=== PATIENT | male | born 1990 | race Caucasian/White ===

== ENCOUNTER 2019-05-23 02:39 | Inpatient (IN) | payer SELFPAY ==
[2019-05-23 02:40] VITALS: BP 173/87; PULSE 86; RESP 16; TEMP 36.6; O2SAT 97; BMI 22.5
--- NOTE | 2019-05-23 02:42 | ED_ITS ---
Entered by Priscila Mann, acting as scribe for JosrEvelia westfall HPI - Psych General: Chief Complaint: Psychiatric Symptoms Stated Complaint: SI Time Seen by Provider: 05/23/19 02:44 Source: patient and police Mode of arrival: ambulatory Limitations: other (in cuffs) History of Present Illness: HPI Narrative: 29 yo m came into the by law enforcement, patient is uncooperative for physician as to why he is here. He is cooperative and answering yes and no questions only.. See affidavits for reports. MD complaint: suicidal ideation and feels depressed Onset (ago): day(s) (today) Duration: constant Relieving factors: none Exacerbating factors: none Review of Systems General: Reports: other (negative unless marked) Const: Denies: fever, chills, body aches, fatigue, malaise or diaphoresis Eyes: Denies: change in vision or blurry vision ENMT: Denies: throat pain, painful swallowing, hoarseness, ear pain, ear discharge, Change in hearing or nasal discharge Card: Denies: chest pain, palpitations, irregular heart rhythm, syncope, pre- syncope, shortness of breath on exertion or shortness of breath when lying down Resp: Denies: shortness of breath, productive cough, non-productive cough, wheezing, coughing up blood or chest congestion GI: Denies: abdominal pain, nausea, vomiting, vomiting blood, coffee grounds in vomit, diarrhea, constipation, cramping, blood in stool or black tarry stool : Denies: flank pain, difficulty urinating, painful urination, urinary frequency, urinary urgency, decreased urine ouput, urinary incontinence or blood in urine Musc: Denies: neck pain, back pain, extremity pain, extremity swelling, joint pain, joint swelling, joint warmth or joint stiffness Skin/Breast: Denies: rash, skin tenderness or yellow skin Neuro: Denies: headache, numbness in extremities, weakness in extremities, changes in sensation, lack of coordination, difficulty walking, dizziness, vertigo or confusion Endo: Denies: excessive thirst, tired all the time, cold intolerance, excessive sweating, flushing or hot flashes Rakesh/Lymph: Denies: easy bruising, easy bleeding, petechiae or enlarged lymph nodes All/Imm: Denies: hives, throat swelling, tongue swelling, facial swelling or acute wheezing PFS ED PFSH: Statuses (acute, chronic, etc) shown below reflect problem list status as previously entered and may not be historically accurate Social History Smoking and tobacco status: current every day smoker Physical Exam Const: COMMON NORMALS: no apparent distress, oriented x3, no limitations, healthy appearing and well nourished EXAM LIMITATIONS: no altered mental status GENERAL APPEARANCE: cooperative, well kempt and well developed ORIENTATION/CONSCIOUSNESS: Yes awake HENMT: COMMON NORMALS: normocephalic, head/scalp atraumatic, hearing grossly normal bilaterally, external ears normal, EAC's normal, external nose normal and moist oral mucous membranes HEAD & SCALP: normal to inspection, normocephalic and atraumatic FACE & SINUS: normal facial exam and face symmetric NOSE: external nose normal and nares normal EXTERNAL EAR: Yes external ears normal EXTERNAL AUDITORY CANAL: EAC's normal MOUTH: oral and palatal mucosa normal and tongue normal Eye: COMMON NORMALS: PERRL, EOMs intact bilaterally, conjunctivae normal and no scleral icterus GENERAL EYE: normal appearance of both eyes and normal light reflex CONJUNCTIVA: Yes conjunctivae normal SCLERA: sclerae normal CORNEA: Yes corneas normal PUPIL: Yes PERRL DIRECT OPHTHALMOSCOPY: Yes normal light reflex Neck/C-Spine: COMMON NORMALS: full ROM, no lymphadenopathy, supple, no meningeal signs and no JVD GENERAL: Yes normal visual inspection and Yes trachea midline CERVICAL SPINE: Yes cervical ROM normal Chest: COMMONS NORMALS: inspection of chest normal and palpation of chest normal Resp: COMMON NORMALS: normal respiratory effort, no retractions, no use of accessory muscles and clear to auscultation bilaterally EFFORT & INSPECTION: Yes able to speak in complete sentences AUSCULTATION: clear to auscultation bilaterally Cardio: COMMON NORMALS: no JVD, regular rate, regular rhythm, S1 normal heart sound, S2 normal heart sound, no gallops, no clicks, no murmurs and no rub JUGULAR VENOUS DISTENTION: no JVD RATE: regular rate RHYTHM: regular rhythm HEART SOUNDS: S1 normal and S2 normal GI: COMMON NORMALS: soft to palpation, non-tender, no hepatosplenomegaly and no masses INSPECTION: Yes normal to inspection PALPATION: Yes soft and Yes no hepatosplenomegaly : COMMON NORMALS: Yes no CVA tenderness BLADDER/KIDNEY EXAM: Yes no CVA tenderness Back/Pelvis: COMMON NORMALS: no CVA tenderness, thoracic and lumbar spine normal to inspection, no thoracic nor lumbar tenderness and thoraco-lumbar ROM normal Extremity: COMMON NORMALS: normal to inspection, full ROM, normal capillary refill, no joint enlargement, no clubbing, cyanosis or edema and no calf tenderness Neuro: COMMON NORMALS: oriented x3, CN's II-XII intact bilaterally, moves all extremities, no focal motor deficits and no sensory deficits noted MENINGEAL SIGNS: Yes no meningeal signs Psych: COMMON NORMALS: mental status grossly normal, thought process normal, cooperative, affect normal, speech normal and activity/motor behavior normal APPEARANCE: Yes well kempt SPEECH: Yes normal speech THOUGHT PROCESS: normal thought process Skin: COMMON NORMALS: no rashes or lesions noted, skin turgor normal, no jaundice, no petechiae and no mottling GENERAL SKIN EXAM: no rashes or lesions noted and turgor normal MDM - Psych MDM Narrative: Medical decision making narrative: The case was reviewed with Dr. Mckeon, he agrees accept the patient to the [facility] on a 96-hour hold. Lab Data: Labs: Lab Results 05/23/19 05/23/19 05/23/19 Range/Units 03:00 03:00 03:01 WBC 11.7 H (4.0-10.0) 10^3/ uL RBC 4.77 (4.1-5.3) 10^6/u L Hgb 14.9 (11.7-16.6) g/dL Hct 43.5 (42.0-52.0) % MCV 91.2 (80-94) fL MCH 31.2 (28.0-34.0) pg MCHC 34.3 (30.0-36.0) g/dL RDW 12.4 (12.1-15.1) % Plt Count 225 (130-400) 10^3/c mm MPV 10.8 H (7.4-10.4) fL Neut % (Auto) 49.6 % Lymph % (Auto) 41.3 % Cottle % (Auto) 7.9 % Eos % (Auto) 0.3 % Baso % (Auto) 0.7 % Neut # (Auto) 5.8 (1.8-7.7) 10^3/u L Lymph # (Auto) 4.8 (0.8-4.8) 10^3/u L Cottle # (Auto) 0.9 (0.2-0.9) 10^3/u L Eos # (Auto) 0.0 (0.0-0.8) 10^3/u L Baso # (Auto) 0.1 (0.0-0.1) 10^3/u L Nucleated RBC % (a uto) 0 % Nucleated RBCs # 0.0 /100WBC Sodium (136-145) mmol/L Potassium (3.5-5.1) mmol/L Chloride (98-107) mmol/L Carbon Dioxide (22-29) mmol/L Anion Gap (5-19) BUN (6-20) mg/dL Creatinine (0.7-1.2) mg/dL GFR Calculation (90-130) mL/min Glucose (74-109) mg/dL Calcium (8.6-10.0) mg/Dl Total Bilirubin (0.15-1.2) mg/dL AST (0-40) U/L ALT (0-41) U/L Alkaline Phosphata se (40-130) IU/L Total Protein (6.6-8.7) g/dL Albumin (3.5-5.2) g/dL Globulin (1.3-4.6) g/dL TSH (0.27-4.20) uIU/ mL Urine Color Straw (Yellow) Urine Appearance Clear (CLEAR) Urine pH 5 (5-7) Ur Specific Gravit y 1.010 (1.005-1.030) Urine Protein Neg (Negative) Urine Glucose (UA) Norm (Normal) Urine Ketones Negative (Negative) Urine Occult Blood Neg (Negative) Urine Nitrate Negative (Negative) Urine Bilirubin Neg (NEGATIVE) Urine Urobilinogen Norm (Negative) mg/dL Ur Leukocyte Imelda ase Negative (Negative) Salicylates (3-10) mg/dL Urine Opiates Scre en Negative (Negative) ng/mL Acetaminophen (10-30) ug/mL Ur Barbiturates Sc reen Negative (Negative) ng/mL Ur Phencyclidine S crn Negative (Negative) ng/mL Ur Amphetamines Sc reen Negative (Negative) ng/mL U Benzodiazepines Scrn Negative (Negative) ng/mL Urine Cocaine Scre en Negative (Negative) ng/mL U Marijuana (THC) Screen Negative (Negative) ng/mL Ethyl Alcohol (0-10) mg/dL 05/23/19 Range/Units 03:01 WBC (4.0-10.0) 10^3/ uL RBC (4.1-5.3) 10^6/u L Hgb (11.7-16.6) g/dL Hct (42.0-52.0) % MCV (80-94) fL MCH (28.0-34.0) pg MCHC (30.0-36.0) g/dL RDW (12.1-15.1) % Plt Count (130-400) 10^3/c mm MPV (7.4-10.4) fL Neut % (Auto) % Lymph % (Auto) % Cottle % (Auto) % Eos % (Auto) % Baso % (Auto) % Neut # (Auto) (1.8-7.7) 10^3/u L Lymph # (Auto) (0.8-4.8) 10^3/u L Cottle # (Auto) (0.2-0.9) 10^3/u L Eos # (Auto) (0.0-0.8) 10^3/u L Baso # (Auto) (0.0-0.1) 10^3/u L Nucleated RBC % (a uto) % Nucleated RBCs # /100WBC Sodium 141 (136-145) mmol/L Potassium 4.0 (3.5-5.1) mmol/L Chloride 104 (98-107) mmol/L Carbon Dioxide 22 (22-29) mmol/L Anion Gap 19.0 (5-19) BUN 16 (6-20) mg/dL Creatinine 1.0 (0.7-1.2) mg/dL GFR Calculation 89.6 L (90-130) mL/min Glucose 100 (74-109) mg/dL Calcium 10.6 H (8.6-10.0) mg/Dl Total Bilirubin 0.2 (0.15-1.2) mg/dL AST 71 H (0-40) U/L ALT 52 H (0-41) U/L Alkaline Phosphata se 79 (40-130) IU/L Total Protein 8.3 (6.6-8.7) g/dL Albumin 4.5 (3.5-5.2) g/dL Globulin 3.8 (1.3-4.6) g/dL TSH 2.77 (0.27-4.20) uIU/ mL Urine Color (Yellow) Urine Appearance (CLEAR) Urine pH (5-7) Ur Specific Gravit y (1.005-1.030) Urine Protein (Negative) Urine Glucose (UA) (Normal) Urine Ketones (Negative) Urine Occult Blood (Negative) Urine Nitrate (Negative) Urine Bilirubin (NEGATIVE) Urine Urobilinogen (Negative) mg/dL Ur Leukocyte Imelda ase (Negative) Salicylates < 0.3 L (3-10) mg/dL Urine Opiates Scre en (Negative) ng/mL Acetaminophen < 5.0 L (10-30) ug/mL Ur Barbiturates Sc reen (Negative) ng/mL Ur Phencyclidine S crn (Negative) ng/mL Ur Amphetamines Sc reen (Negative) ng/mL U Benzodiazepines Scrn (Negative) ng/mL Urine Cocaine Scre en (Negative) ng/mL U Marijuana (THC) Screen (Negative) ng/mL Ethyl Alcohol 205 H (0-10) mg/dL EKG Data^: EKG 1: Attestation: I personally reviewed and interpreted this EKG as follows: EKG interpretation date: 05/23/19 EKG interpretation time: 02:55 Prior EKG tracings: not available for review Interpretation: Normal sinus rhythm at 96 beats a minute, normal axis, normal IN and QTc intervals, nonspecific ST and T wave changes. Discharge Plan Discharge Prescriptions: No Action No Known Home Medications RF: 0 Coding Level of Care Code ED Operations Support Coordinator for Chg Fwd Exam Problem Focused The documentation recorded by the Johnathan rodriguez Stephanie Lyn, accurately reflects the service I personally performed and the decisions made by Josr flores Eli N
--- NOTE | 2019-05-23 02:44 | ECG_ITS ---
Measurements Intervals Ragan Rate: 96 P: 81 KS: 156 QRS: 92 QRSD: 106 T: 17 QT: 338 QTc: 427 SINUS RHYTHM WITH SINUS ARRHYTHMIA POSSIBLE LEFT ATRIAL ENLARGEMENT [-0.1mV P WAVE IN V1/V2] BORDERLINE RIGHT AXIS DEVIATION [QRS AXIS > 90] NONSPECIFIC T-WAVE ABNORMALITY Compared to ECG 04/12/2017 05:22:38 T-wave abnormality now present Early repolarization no longer present Electronically Signed On 05-23-2019 9:33:30 SALMON TROLL FISHER by Tristen Ag M.D. [email or web address]
[2019-05-23] MEDS: haloperidol inj 5 mg/mL INJ 1 mL IM (03:00)
[2019-05-23 03:12] LABS: Basophils # 0.1 10^3/uL (0.0-0.1); Basophils % 0.7 %; Eosinophils % 0.3 %; Hematocrit 43.5 % (42.0-52.0); Hemoglobin 14.9 g/dL (11.7-16.6); Lymphocytes # 4.8 10^3/uL (0.8-4.8); Lymphocytes % 41.3 %; Mean Corpuscular HGB Conc 34.3 g/dL (30.0-36.0); Mean Corpuscular Hemoglobin 31.2 pg (28.0-34.0); Mean Corpuscular Volume 91.2 fL (80-94); Mean Platelet Volume 10.8 fL (7.4-10.4); Monocytes # 0.9 10^3/uL (0.2-0.9); Monocytes % 7.9 %; Neutrophils # 5.8 10^3/uL (1.8-7.7); Neutrophils % 49.6 %; Nucleated Red Blood Cells % 0 %; Platelet Count 225 10^3/cmm (130-400); Red Blood Count 4.77 10^6/uL (4.1-5.3); Red Cell Distribution Width 12.4 % (12.1-15.1); White Blood Count 11.7 10^3/uL (4.0-10.0)
[2019-05-23 03:21] LABS: Add Urine Microscopic? NO
[2019-05-23 03:25] LABS: Bilirubin Urine Neg (NEGATIVE); Blood Urine Neg (Negative); Glucose Urine UA Norm (Normal); Ketones Urine Negative (Negative); Leukocyte Esterase Urine Negative (Negative); Nitrate Urine Negative (Negative); Protein Urine Neg (Negative); Urine Appearance Clear (CLEAR); Urine Color Straw (Yellow); Urobilinogen Urine Norm (Negative); pH Urine 5 (5-7)
[2019-05-23 03:34] LABS: Slide Review Slide Review Perform
[2019-05-23 03:38] LABS: Alanine Aminotransferase 52 U/L (0-41); Albumin Level 4.5 g/dL (3.5-5.2); Alcohol Level 205 mg/dL (0-10); Alkaline Phosphatase 79 IU/L (40-130); Aspartate Amino Transferase 71 U/L (0-40); Blood Urea Nitrogen 16 mg/dL (6-20); Calcium 10.6 mg/Dl (8.6-10.0); Carbon Dioxide 22 mmol/L (22-29); Chloride 104 mmol/L (98-107); Globulin 3.8 g/dL (1.3-4.6); Glomerular Filtration Rate 89.6 mL/min (90-130); Glucose 100 mg/dL (74-109); Sodium 141 mmol/L (136-145); Thyroid Stimulating Hormone 2.77 uIU/mL (0.27-4.20); Total Bilirubin 0.2 mg/dL (0.15-1.2); Total Protein 8.3 g/dL (6.6-8.7)
[2019-05-23 03:41] LABS: Acetaminophen < 5.0 ug/mL (10-30); Salicylate < 0.3 mg/dL (3-10)
[2019-05-23 03:53] LABS: Amphetamines Screen Urine Negative (Negative); Barbiturates Screen Urine Negative (Negative); Benzodiazepines Screen Urine Negative (Negative); Cocaine Screen Urine Negative (Negative); Opiate Screen Urine Negative (Negative); PCP Screen Urine Negative (Negative); THC Screen Urine Negative (Negative)
[2019-05-23 04:04] LABS: Phenytoin Dilantin 0.8 ug/mL (10-20); Valproic Acid Level 2.8 mcg/mL (50-100)
[2019-05-23 05:20] VITALS: BP 101/49; PULSE 58; RESP 16; TEMP 36.3; O2SAT 98
[2019-05-23 06:00] VITALS: BP 116/88; PULSE 69; RESP 17; TEMP 36.6
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
[2019-05-23] MEDS: multivitamin therapeutic Tablet 1 TAB PO (08:50)
[2019-05-23] MEDS: folic acid 1 mg Tablet PO (08:50)
[2019-05-23] MEDS: thiamine 100 mg Tablet PO (08:50)
[2019-05-23 14:00] VITALS: BP 110/55; PULSE 75; RESP 18; TEMP 37.3; O2SAT 96
[2019-05-23] MEDS: acetaminophen 325 mg Tablet 650 MG PO (15:30)
[2019-05-23 19:55] VITALS: BP 110/58; PULSE 66; RESP 18; TEMP 36.8; O2SAT 98
[2019-05-24 06:00] VITALS: BP 112/60; PULSE 68; RESP 18; TEMP 36.8; O2SAT 98
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
[2019-05-24] MEDS: folic acid 1 mg Tablet PO (10:04)
[2019-05-24] MEDS: thiamine 100 mg Tablet PO (10:04)
[2019-05-24] MEDS: multivitamin therapeutic Tablet 1 TAB PO (10:04)
== END 2019-05-24 10:21 | disposition home or self-care (01) | DRG 897 ==
LOC: ER 04:00 → NP 05:12
PROVIDERS: Admitting Provider Psychiatry & Neurology Psychiatry; Emergency Provider Emergency Medicine; Visit Provider Psychiatry & Neurology Psychiatry
DX: F10.121 Alcohol abuse with intoxication delirium (principal); M54.9 Dorsalgia, unspecified; G89.29 Other chronic pain; Z87.820 Personal history of traumatic brain injury; J45.909 Unspecified asthma, uncomplicated; Y90.7 Blood alcohol level of 200-239 mg/100 ml
CPT/HCPCS: 12345; 80053; 80156; 80164; 80185; 80307; 81003; 84443; 85025; 93005; 96372; 99284; A9270; J1630

== ENCOUNTER 2020-06-29 14:52 | Emergency (ER) | payer OTHER, SELFPAY ==
[2020-06-29 15:01] VITALS: BP 116/76; PULSE 101; RESP 16; TEMP 36.2; O2SAT 98; BMI 23.1
--- NOTE | 2020-06-29 15:06 | ED_ITS ---
HPI - Extremity Problem General: Chief complaint: Extremity Injury, Lower Stated complaint: SMASHED TOE AT WORK Time Seen by Provider: 06/29/20 15:05 Source: patient Mode of arrival: ambulatory Limitations: no limitations History of Present Illness: HPI Narrative: 30-year-old male patient comes in today with injury to the great toe on the left foot. Patient reports yesterday while at work he had dropped a tie on his great toe. Patient has had discomfort and redness to the toe. Patient appears well. Patient appears no acute distress. Patient has a history of alcoholism. Review of Systems General: Reports: 10 or more systems reviewed and unremarkable except in HPI and below Musc: Reports: other (Great toe injury left foot) [facility] ED PFSH: Social History (Updated 06/29/20 @ 15:04 by Alejandro Granados RN) Smoking and tobacco status: light tobacco smoker cigarettes Packs smoked per day: 0.5 Years cigarettes smoked: 15 Quit status (tobacco): has tried quititng Number of times tried to quit tobacco: 5 Second hand smoke exposure: No Alcohol intake: never Substance/Drug Use: never Current gender identity: Male Physical Exam Const: COMMON NORMALS: no acute distress and patient oriented x3 GENERAL APPEARANCE: cooperative HENMT: COMMON NORMALS: normocephalic and Normal external nose present HEAD & SCALP: normal to inspection and normocephalic NOSE: Normal external nose present MOUTH: Normal oral and palatal mucosa present Eye: GENERAL EYE: appearance normal, both eyes and all related structures Neck/C-Spine: COMMON NORMALS: full ROM Chest: COMMONS NORMALS: normal inspection of the chest Resp: COMMON NORMALS: normal respiratory effort EFFORT & INSPECTION: Yes able to speak in complete sentences Cardio: COMMON NORMALS: regular rate and regular rhythm RATE: regular rate RHYTHM: regular rhythm GI: COMMON NORMALS: non-tender Back/Pelvis: COMMON NORMALS: thoracic and lumbar spine normal to inspection Extremity: NARRATIVE EXTREMITY EXAM: Ecchymosis to the subungual area of the great toe on the left foot. Redness and mild swelling is also noted to the great toe. Pulses are intact. No obvious deformity otherwise. Neuro: COMMON NORMALS: patient oriented x3 and moves all extremities Psych: COMMON NORMALS: mental status grossly normal and cooperative Skin: COMMON NORMALS: no rashes or lesions noted GENERAL SKIN EXAM: no rashes or lesions noted Course Vital Signs: Vital signs: Vital Signs Temperature 97.2 F L 06/29/20 15:01 Pulse Rate 86 06/29/20 15:10 Respiratory Rate 16 06/29/20 15:01 Blood Pressure 117/69 06/29/20 15:10 Pulse Oximetry 95 06/29/20 15:10 MDM - Extremity (Nontraumatic) MDM Narrative: Medical decision making narrative: 30-year-old male patient comes in for evaluation of injury to the great toe of the left foot starting yesterday. On exam patient has subungual hematoma with some swelling to the toe. Differential diagnosis includes contusion, fracture, sprain. X-ray noted no acute fracture. Reviewed exam with patient recommended treatment with acetaminophen and ibuprofen for pain. Due to the significant redness to the area we will cover for secondary infection due to blunt injury. Patient be started on cephalexin 503 times a day for next 7 days. Patient reported understanding of care plan and need for follow-up or return to the ER. Discharge Plan Discharge Patient Disposition: Home Clinical Impression: Hematoma, subungual, great toe, left Qualifiers: Encounter type: initial encounter Qualified Code(s): S90.212A - Contusion of left great toe with damage to nail, initial encounter Condition: Stable Prescriptions: New cephalexin 500 mg capsule 500 mg PO TID 7 Days Qty: 21 RF: 0 No Action venlafaxine [Effexor XR] 150 mg capsule,extended release 24hr 150 mg PO DAILY Qty: 30 RF: 2 trazodone 50 mg tablet 100 mg PO .HS Qty: 60 RF: 2 hydroxyzine HCl 50 mg tablet 50 mg PO QID PRN (Reason: anxiety) Qty: 120 RF: 2 folic acid 1 mg Tablet 1 mg PO DAILY Qty: 30 RF: 0 Vitamin B-1 (mononitrate) 100 mg Tablet 100 mg PO DAILY Qty: 30 RF: 0 Discharge Orders: Discharge ED (Routine); Ordered 06/29/20 Ordered By: Rell Castano Discharge Diet: Usual diet Discharge Activity: Increase activity as tolerated Patient Instructions: Foot Contusion (ED), Opioid Safety Activity Restrictions/Additional Instructions: Use acetaminophen and ibuprofen for pain. Activity as tolerated. Wear good supportive and protective shoe. Elevate foot as much as possible. Usually after 2 to 3 days the pain improved significantly. Follow-up with primary care as needed. Take antibiotic due to concern for secondary infection. Coding Level of Care Code ED Crane Service Technician for Chg Fwd Exam Comprehensive
--- NOTE | 2020-06-29 15:08 | XR_ITS ---
WS: [id number] Exam: XR foot LT min 3V* [id number] Date/Time of Exam: 06/29/2020 3:10 PM Reason For Exam: injury great toe, crush Findings: The foot was examined in multiple views and reveals no fractures or displacements of bone. No bony a nomalies are noted. The bony elements are in adequate alignment. The joint spaces are smooth and eq uidistant. XR/XR foot LT min 3V* [id number] IMPRESSION: Negative left foot.
[2020-06-29 15:10] VITALS: BP 117/69; PULSE 86; O2SAT 95
[2020-06-29 15:47] VITALS: BP 123/84; PULSE 88; O2SAT 98
== END 2020-06-29 15:48 | disposition home or self-care (01) ==
PROVIDERS: Emergency Provider Nurse Practitioner Family
DX: S90.212A Contusion of left great toe with damage to nail, initial encounter (principal); F17.210 Nicotine dependence, cigarettes, uncomplicated; W20.8XXA Other cause of strike by thrown, projected or falling object, initial encounter
CPT/HCPCS: 73630; 99282

== ENCOUNTER → 2021-09-03 06:00 | Outpatient (BNVA) | payer SELFPAY | PROVIDERS: Visit Provider Family Medicine | DX: J02.9 Acute pharyngitis, unspecified (principal) | CPT/HCPCS: 87880 ==

== ENCOUNTER 2022-12-12 07:14 | Emergency (ER) | payer SELFPAY ==
[2022-12-12 07:24] VITALS: BP 134/53; PULSE 83; RESP 15; TEMP 37.6; O2SAT 99
--- NOTE | 2022-12-12 07:47 | XR_ITS ---
WS: [id number] XR chest 2V* [id number] REASON FOR EXAM: fever FINDINGS: The chest is unchanged compared to 07/30/2008. The heart and mediastinum are within normal limits. No active pulmonary parenchymal or pleural disease is noted. The bony thorax is intact without significant focal abnormality. IMPRESSION: No acute chest abnormality.
--- NOTE | 2022-12-12 07:50 | XR_ITS ---
WS: [id number] XR sinus <3V [id number] REASON FOR EXAM: facial pain FINDINGS: Paranasal sinuses are well aerated. No significant mucosal thickening or sinus mass. Bony margins of the paranasal sinuses are unremarkable. Remaining facial bone structures demonstrate no abnormality. IMPRESSION: No significant abnormality.
--- NOTE | 2022-12-12 07:59 | W.ED.HA ---
Documented by User: SURAJ Hernadez 12/12/22 11:24 HPI - Headache General: Chief Complaint: Headache Stated Complaint: 3 days migraine Time Seen by Provider: 12/12/22 07:17 History of Present Illness: Patient presents today with 3 days of headache and not feeling well. He reports that approximately 3 days ago he started just feeling generally ill and noticing that he was having intermittent fevers up to 102 degrees. He reports that he has had an intermittent headache for 3 days. He reports that hurts mostly on his temples, forehead and around his left eye. He denies any visual disturbance, but states that it hurts when he looks to the side on the left. He reports that for the past 2 days he has been having neck stiffness that seems to be worsening. He reports it hurts a lot when he turns his head or bends his neck down. He does report he has poor dentition but has not noted any tooth pain specifically. He took 1 dose of an antibiotic that his give him but he does not know the name of it. He has had some nasal congestion and drainage and he does smoke. He reports that he told the triage nurse that he had had some shortness of breath, but it is not really shortness of breath. He states that the headache gets so bad it seems to take his breath away. Associated symptoms: Reports fever(s); Deny chest pain, nausea or vomiting Review of Systems Const: Reports: fever(s), chills, body aches and fatigue Eyes: Reports: eye discomfort; Denies: change in vision ENMT: Reports: nasal congestion; Denies: throat pain, mouth pain, dental pain or ear or mastoid pain Card: Denies: chest pain or palpitations Resp: Reports: non-productive cough (States that he is a smoker, this is baseline); Denies: dyspnea or productive cough GI: Denies: abdominal pain, nausea or vomiting : Denies: flank pain, difficulty urinating or dysuria Musc: Reports: neck pain Neuro: Reports: headache(s) and dizziness; Denies: numbness in extremities, weakness in extremities or difficulty walking [facility] PFSH: Social History Smoking and tobacco status: light tobacco smoker cigarettes Packs smoked per day: 0.5 Years cigarettes smoked: 15 Quit status (tobacco): has tried quititng Number of times tried to quit tobacco: 5 Second hand smoke exposure: No Alcohol intake: never Substance/Drug Use: never Current gender identity: Male Physical Exam Const: COMMON NORMALS: no acute distress, patient oriented x3 and alert HENMT: COMMON NORMALS: normocephalic, atraumatic and external ears normal HEAD & SCALP: normocephalic and atraumatic EXTERNAL EAR: Yes external ears normal TYMPANIC MEMBRANE: TM abnormal TM laterality: left Details: bulging (Clear fluid effusion) TEETH & GINGIVA: Yes poor dentition THROAT: posterior oropharynx normal and uvula midline Eye: COMMON NORMALS: Equal, round and reactive pupils present, EOMs intact bilaterally and conjunctivae normal CONJUNCTIVA: Yes conjunctivae normal PUPIL: Yes Equal, round and reactive pupils present OTHER: Patient reports pain with lateral eye gaze specifically worse on the left lateral Neck/C-Spine: COMMON NORMALS: no JVD GENERAL: Yes normal visual inspection, Yes trachea midline, Yes tender and Yes Meningeal signs present Meningeal signs findings: Yes nuccal rigidity, No Brudzinski's sign present and No Kernig's sign presnet OTHER: Patient reports neck stiffness with Kernig sign however there is no reflexive hip flexion. Kernig sign is negative Resp: COMMON NORMALS: normal respiratory effort, No use of accessory muscles and clear to auscultation bilaterally AUSCULTATION: clear to auscultation bilaterally Cardio: COMMON NORMALS: no JVD, regular rate, regular rhythm, S1 normal heart sound present and S2 normal heart sound present RATE: regular rate RHYTHM: regular rhythm HEART SOUNDS: S1 normal heart sound present and S2 normal heart sound present Neuro: COMMON NORMALS: patient oriented x3, CN's II-XII intact bilaterally, moves all extremities and no focal motor deficits SENSORIUM/ORIENTATION: Yes alert MENINGEAL SIGNS: Yes nuccal rigidity, No Brudzinski's sign present and No Kernig's sign presnet Skin: NARRATIVE SKIN EXAM: Tick bite posterior left arm at the axilla. Small scabbed lesion Quarter centimeter surrounding erythema slightly edematous. No oozing. Course Vital Signs: Vital signs: Vital Signs Temperature 99.7 F H 12/12/22 07:24 Pulse Rate 83 12/12/22 07:24 Respiratory Rate 15 12/12/22 07:24 Blood Pressure 134/53 12/12/22 07:24 Pulse Oximetry 99 12/12/22 07:24 Oxygen Delivery Me thod Room Air 12/12/22 07:24 MDM - Headache Medical Decision Making Patient presents today for illness x 3 days including headache, neck pain, fever up to 102 degrees. Patient reports that he does not typically get headaches. He reported pain with the lateral gaze more on the left eye to the left lateral. EOMs are intact all sorenson. He denies visual disturbance. X-ray chest and x-ray sinuses are negative for any acute abnormalities. IV fluid administered along wit Toradol, Benadryl, Reglan. On reevaluation after medications administered patient reports little to no change in headache. He does offer at that time that he forgot to tell me that he has a tick bite on the back of his left arm. He thinks he was bitten 2 weeks ago. He states it is a little bit red around there and somewhat painful. Discussed the case with Dr. Penn who agrees with workup thus far and going ahead and starting treatment for potential tickborne illness with doxycycline. He also agrees with plan to do a noncontrast CT head given patient's neck stiffness and lateral eye gaze pain reported. CT head does not show any acute changes Patient reports improvement of headache after medications administered today, but states that he is tired I discussed the case, test results, physical exam findings with Dr. Penn. He agrees that meningitis is a less likely diagnosis at this time given his normal white blood cell count, normal imaging, negative Kernig's and Brudzinski's signs. He agrees with treating to cover for tickborne illness with doxycycline but given the patient's strict return precautions. Patient is requesting to go home. He verbalized understanding of all discharge instructions. He states that he will return to the ER should he have new or worsening symptoms, or should his symptoms not be improving drastically over the next 48 hours. Lab Data 12/12/22 08:00 12/12/22 08:00 Laboratory Results WBC 9.7 10^3/uL (4.0-10.0) 12/12/22 08:00 RBC 4.70 10^6/uL (4.1-5.3) 12/12/22 08:00 Hgb 14.7 g/dL (11.7-16.6) 12/12/22 08:00 Hct 42.8 % (42.0-52.0) 12/12/22 08:00 MCV 91.1 fl (80-94) 12/12/22 08:00 MCH 31.3 pg (28.0-34.0) 12/12/22 08:00 MCHC 34.3 g/dL (30.0-36.0) 12/12/22 08:00 RDW 12.5 % (12.1-15.1) 12/12/22 08:00 Plt Count 150 10^3/cmm (130-400) 12/12/22 08:00 MPV 10.4 fL (7.4-10.4) 12/12/22 08:00 Neut % (Auto) 76.6 % 12/12/22 08:00 Lymph % (Auto) 11.7 % 12/12/22 08:00 [place] % (Auto) 10.8 % 12/12/22 08:00 Eos % (Auto) 0.0 % 12/12/22 08:00 Baso % (Auto) 0.5 % 12/12/22 08:00 Neut # (Auto) 7.42 10^3/uL (1.8-7.7) 12/12/22 08:00 Lymph # (Auto) 1.1 10^3/uL (0.8-4.8) 12/12/22 08:00 [place] # (Auto) 1.1 10^3/uL (0.2-0.9) H 12/12/22 08:00 Eos # (Auto) 0.0 10^3/uL (0.0-0.8) 12/12/22 08:00 Baso # (Auto) 0.1 10^3/uL (0.0-0.1) 12/12/22 08:00 Nucleated RBC % (auto) 0 % 12/12/22 08:00 Nucleated RBCs # 0.0 /100WBC 12/12/22 08:00 Sodium 133 mmol/L (136-145) L 12/12/22 08:00 Potassium 4.1 mmol/L (3.5-5.1) 12/12/22 08:00 Chloride 97 mmol/L (98-107) L 12/12/22 08:00 Carbon Dioxide 25 mmol/L (22-29) 12/12/22 08:00 Anion Gap 15.1 (5-19) 12/12/22 08:00 BUN 11 mg/dL (6-20) 12/12/22 08:00 Creatinine 1.0 mg/dL (0.7-1.2) 12/12/22 08:00 GFR Calculation 87.7 mL/min (90-130) L 12/12/22 08:00 Glucose 160 mg/dL (65-115) H 12/12/22 08:00 Calculated Osmolality 279 mOsm/kg (285-295) L 12/12/22 08:00 Calcium 9.0 mg/dL (8.5-10.5) 12/12/22 08:00 Total Bilirubin 0.3 mg/dL (0.15-1.2) 12/12/22 08:00 AST 17 U/L (0-40) 12/12/22 08:00 ALT 12 U/L (0-41) 12/12/22 08:00 Alkaline Phosphatase 64 U/L (40-130) 12/12/22 08:00 Total Protein 7.6 g/dL (6.6-8.7) 12/12/22 08:00 Albumin 4.2 g/dL (3.5-5.2) 12/12/22 08:00 Globulin 3.4 g/dL (1.3-4.6) 12/12/22 08:00 Urine Color Yellow (Yellow) 12/12/22 08:00 Urine Appearance Clear (CLEAR) 12/12/22 08:00 Urine pH 6 (5-7) 12/12/22 08:00 Ur Specific [place] 1.020 (1.005-1.030) 12/12/22 08:00 Urine Protein 1+ (Negative) H 12/12/22 08:00 Urine Glucose (UA) Trace (Normal) H 12/12/22 08:00 Urine Ketones Negative (Negative) 12/12/22 08:00 Urine Blood Neg (Negative) 12/12/22 08:00 Urine Nitrate Negative (Negative) 12/12/22 08:00 Urine Bilirubin Neg (Negative) 12/12/22 08:00 Urine Urobilinogen 1 mg/dL (Negative) H 12/12/22 08:00 Ur Leukocyte Esterase Negative (Negative) 12/12/22 08:00 Urine RBC 0-4 /hpf (0-2) H 12/12/22 08:00 Urine WBC 0-4 /hpf (0-5) H 12/12/22 08:00 Ur Squamous Epith Cells 0-4 /hpf (0-5) H 12/12/22 08:00 Amorphous Sediment Not Reportable 12/12/22 08:00 Urine Bacteria None /hpf (NONE) 12/12/22 08:00 Hyaline Casts 0-4 /lpf H 12/12/22 08:00 Urine Mucus 2+ /hpf 12/12/22 08:00 Discharge Plan Discharge Patient Disposition: Home Clinical Impression: Headache, Fever, Neck pain, Tick bite Condition: Stable Prescriptions: New doxycycline hyclate 100 mg capsule 100 mg PO BID 14 Days Qty: 28 0RF Discharge Orders: Discharge ED (Routine); Ordered 12/12/22 Ordered By: Karla Jalloh Discharge Diet: Usual diet Discharge Activity: Increase activity as tolerated Patient Instructions: Tick Bites Activity Restrictions/Additional Instructions: Take antibiotic as directed. You had your first dose this morning you may take your second dose this evening. Stay upright for at least 30 minutes after taking the medication to prevent GI upset. Use caution with sun exposure as you can burn more easily. Make sure that you are staying well-hydrated. You may alternate Tylenol and Motrin to help with head pain. You should be feeling significantly improved in the next 48 hours and if you are not you need to return for further evaluation. Return to the ER should you have any new or worsening symptoms including, but not limited to, worsening head pain, uncontrolled fever, visual disturbance, worsening eye pain., Coding Level of Care Code ED Sealing Machine Operator for Chg Fwd Documented by User: Giles Penn MD 12/17/22 17:23 HPI - Headache General: Chief Complaint: Headache Stated Complaint: 3 days migraine Time Seen by Provider: 12/12/22 07:17 [facility] PFSH: Social History Smoking and tobacco status: light tobacco smoker cigarettes Packs smoked per day: 0.5 Years cigarettes smoked: 15 Quit status (tobacco): has tried quititng Number of times tried to quit tobacco: 5 Second hand smoke exposure: No Alcohol intake: never Substance/Drug Use: never Current gender identity: Male Course Vital Signs: Vital signs: Vital Signs Temperature 99.7 F H 12/12/22 07:24 Pulse Rate 83 12/12/22 07:24 Respiratory Rate 15 12/12/22 07:24 Blood Pressure 134/53 12/12/22 07:24 Pulse Oximetry 99 12/12/22 07:24 Oxygen Delivery Me thod Room Air 12/12/22 07:24 MDM - Headache Medical Decision Making Patient presents today for illness x 3 days including headache, neck pain, fever up to 102 degrees. Patient reports that he does not typically get headaches. He reported pain with the lateral gaze more on the left eye to the left lateral. EOMs are intact all sorenson. He denies visual disturbance. X-ray chest and x-ray sinuses are negative for any acute abnormalities. IV fluid administered along wit Toradol, Benadryl, Reglan. On reevaluation after medications administered patient reports little to no change in headache. He does offer at that time that he forgot to tell me that he has a tick bite on the back of his left arm. He thinks he was bitten 2 weeks ago. He states it is a little bit red around there and somewhat painful. Discussed the case with Dr. Penn who agrees with workup thus far and going ahead and starting treatment for potential tickborne illness with doxycycline. He also agrees with plan to do a noncontrast CT head given patient's neck stiffness and lateral eye gaze pain reported. CT head does not show any acute changes Patient reports improvement of headache after medications administered today, but states that he is tired I discussed the case, test results, physical exam findings with Dr. Penn. He agrees that meningitis is a less likely diagnosis at this time given his normal white blood cell count, normal imaging, negative Kernig's and Brudzinski's signs. He agrees with treating to cover for tickborne illness with doxycycline but given the patient's strict return precautions. Patient is requesting to go home. He verbalized understanding of all discharge instructions. He states that he will return to the ER should he have new or worsening symptoms, or should his symptoms not be improving drastically over the next 48 hours. I discussed this case with MED Hernadez. I reviewed documentation, labs, imaging. Giles Penn MD Emergency Medicine Lab Data 12/12/22 08:00 12/12/22 08:00 Laboratory Results WBC 9.7 10^3/uL (4.0-10.0) 12/12/22 08:00 RBC 4.70 10^6/uL (4.1-5.3) 12/12/22 08:00 Hgb 14.7 g/dL (11.7-16.6) 12/12/22 08:00 Hct 42.8 % (42.0-52.0) 12/12/22 08:00 MCV 91.1 fl (80-94) 12/12/22 08:00 MCH 31.3 pg (28.0-34.0) 12/12/22 08:00 MCHC 34.3 g/dL (30.0-36.0) 12/12/22 08:00 RDW 12.5 % (12.1-15.1) 12/12/22 08:00 Plt Count 150 10^3/cmm (130-400) 12/12/22 08:00 MPV 10.4 fL (7.4-10.4) 12/12/22 08:00 Neut % (Auto) 76.6 % 12/12/22 08:00 Lymph % (Auto) 11.7 % 12/12/22 08:00 [place] % (Auto) 10.8 % 12/12/22 08:00 Eos % (Auto) 0.0 % 12/12/22 08:00 Baso % (Auto) 0.5 % 12/12/22 08:00 Neut # (Auto) 7.42 10^3/uL (1.8-7.7) 12/12/22 08:00 Lymph # (Auto) 1.1 10^3/uL (0.8-4.8) 12/12/22 08:00 [place] # (Auto) 1.1 10^3/uL (0.2-0.9) H 12/12/22 08:00 Eos # (Auto) 0.0 10^3/uL (0.0-0.8) 12/12/22 08:00 Baso # (Auto) 0.1 10^3/uL (0.0-0.1) 12/12/22 08:00 Nucleated RBC % (auto) 0 % 12/12/22 08:00 Nucleated RBCs # 0.0 /100WBC 12/12/22 08:00 Sodium 133 mmol/L (136-145) L 12/12/22 08:00 Potassium 4.1 mmol/L (3.5-5.1) 12/12/22 08:00 Chloride 97 mmol/L (98-107) L 12/12/22 08:00 Carbon Dioxide 25 mmol/L (22-29) 12/12/22 08:00 Anion Gap 15.1 (5-19) 12/12/22 08:00 BUN 11 mg/dL (6-20) 12/12/22 08:00 Creatinine 1.0 mg/dL (0.7-1.2) 12/12/22 08:00 GFR Calculation 87.7 mL/min (90-130) L 12/12/22 08:00 Glucose 160 mg/dL (65-115) H 12/12/22 08:00 Calculated Osmolality 279 mOsm/kg (285-295) L 12/12/22 08:00 Calcium 9.0 mg/dL (8.5-10.5) 12/12/22 08:00 Total Bilirubin 0.3 mg/dL (0.15-1.2) 12/12/22 08:00 AST 17 U/L (0-40) 12/12/22 08:00 ALT 12 U/L (0-41) 12/12/22 08:00 Alkaline Phosphatase 64 U/L (40-130) 12/12/22 08:00 Total Protein 7.6 g/dL (6.6-8.7) 12/12/22 08:00 Albumin 4.2 g/dL (3.5-5.2) 12/12/22 08:00 Globulin 3.4 g/dL (1.3-4.6) 12/12/22 08:00 Urine Color Yellow (Yellow) 12/12/22 08:00 Urine Appearance Clear (CLEAR) 12/12/22 08:00 Urine pH 6 (5-7) 12/12/22 08:00 Ur Specific [place] 1.020 (1.005-1.030) 12/12/22 08:00 Urine Protein 1+ (Negative) H 12/12/22 08:00 Urine Glucose (UA) Trace (Normal) H 12/12/22 08:00 Urine Ketones Negative (Negative) 12/12/22 08:00 Urine Blood Neg (Negative) 12/12/22 08:00 Urine Nitrate Negative (Negative) 12/12/22 08:00 Urine Bilirubin Neg (Negative) 12/12/22 08:00 Urine Urobilinogen 1 mg/dL (Negative) H 12/12/22 08:00 Ur Leukocyte Esterase Negative (Negative) 12/12/22 08:00 Urine RBC 0-4 /hpf (0-2) H 12/12/22 08:00 Urine WBC 0-4 /hpf (0-5) H 12/12/22 08:00 Ur Squamous Epith Cells 0-4 /hpf (0-5) H 12/12/22 08:00 Amorphous Sediment Not Reportable 12/12/22 08:00 Urine Bacteria None /hpf (NONE) 12/12/22 08:00 Hyaline Casts 0-4 /lpf H 12/12/22 08:00 Urine Mucus 2+ /hpf 12/12/22 08:00 Discharge Plan Discharge Patient Disposition: Home Clinical Impression: Headache, Fever, Neck pain, Tick bite Condition: Stable Prescriptions: New doxycycline hyclate 100 mg capsule 100 mg PO BID 14 Days Qty: 28 0RF Discharge Orders: Discharge ED (Routine); Ordered 12/12/22 Ordered By: Karla Jalloh Discharge Diet: Usual diet Discharge Activity: Increase activity as tolerated Patient Instructions: Tick Bites Activity Restrictions/Additional Instructions: Take antibiotic as directed. You had your first dose this morning you may take your second dose this evening. Stay upright for at least 30 minutes after taking the medication to prevent GI upset. Use caution with sun exposure as you can burn more easily. Make sure that you are staying well-hydrated. You may alternate Tylenol and Motrin to help with head pain. You should be feeling significantly improved in the next 48 hours and if you are not you need to return for further evaluation. Return to the ER should you have any new or worsening symptoms including, but not limited to, worsening head pain, uncontrolled fever, visual disturbance, worsening eye pain., Coding Level of Care Code ED Sealing Machine Operator for Gabriel Flores
[2022-12-12 08:06] LABS: Basophils # 0.1 10^3/uL (0.0-0.1); Basophils % 0.5 %; Hematocrit 42.8 % (42.0-52.0); Hemoglobin 14.7 g/dL (11.7-16.6); Lymphocytes # 1.1 10^3/uL (0.8-4.8); Lymphocytes % 11.7 %; Mean Corpuscular HGB Conc 34.3 g/dL (30.0-36.0); Mean Corpuscular Hemoglobin 31.3 pg (28.0-34.0); Mean Corpuscular Volume 91.1 fl (80-94); Mean Platelet Volume 10.4 fL (7.4-10.4); Monocytes # 1.1 10^3/uL (0.2-0.9); Monocytes % 10.8 %; Neutrophils # 7.42 10^3/uL (1.8-7.7); Neutrophils % 76.6 %; Nucleated Red Blood Cells % 0 %; Platelet Count 150 10^3/cmm (130-400); Red Cell Distribution Width 12.5 % (12.1-15.1); White Blood Count 9.7 10^3/uL (4.0-10.0)
[2022-12-12] MEDS: sodium chloride 0.9% 1,000 ML 999 ML IV (08:06)
[2022-12-12 08:09] LABS: Protein Urine 1+ (Negative); Urine Appearance Clear (CLEAR); Urine Color Yellow (Yellow); pH Urine 6 (5-7)
[2022-12-12 08:10] LABS: Add Urine Microscopic? YES; Bilirubin Urine Neg (Negative); Blood Urine Neg (Negative); Glucose Urine UA Trace (Normal); Ketones Urine Negative (Negative); Leukocyte Esterase Urine Negative (Negative); Nitrate Urine Negative (Negative); Urobilinogen Urine 1 mg/dL (Negative)
[2022-12-12 08:23] LABS: RBC Urine 0-4 /hpf (0-2); Squamous Epithelial Cell Urine 0-4 /hpf (0-5); WBC Urine 0-4 /hpf (0-5)
[2022-12-12 08:24] LABS: Add Urine Culture? No; Hyaline Casts Urine 0-4 /lpf; Mucus Urine 2+ /hpf
[2022-12-12] MEDS: diphenhydrAMINE 50 mg/mL SDV 1mL IVP (08:44)
[2022-12-12] MEDS: ketorolac 30 mg/mL INJ IVP (08:44)
[2022-12-12] MEDS: metoclopramide 5 mg/mL SDV 2 mL 10 MG IVP (08:49)
[2022-12-12 09:37] LABS: Alanine Aminotransferase 12 U/L (0-41); Albumin Level 4.2 g/dL (3.5-5.2); Alkaline Phosphatase 64 U/L (40-130); Anion Gap 15.1 (5-19); Aspartate Amino Transferase 17 U/L (0-40); Blood Urea Nitrogen 11 mg/dL (6-20); Carbon Dioxide 25 mmol/L (22-29); Chloride 97 mmol/L (98-107); Globulin 3.4 g/dL (1.3-4.6); Glomerular Filtration Rate 87.7 mL/min (90-130); Glucose 160 mg/dL (65-115); Osmolality Calculated 279 mOsm/kg (285-295); Potassium 4.1 mmol/L (3.5-5.1); Sodium 133 mmol/L (136-145); Total Bilirubin 0.3 mg/dL (0.15-1.2); Total Protein 7.6 g/dL (6.6-8.7)
--- NOTE | 2022-12-12 10:00 | CT_ITS ---
WS: [id number] CT HEAD TECHNIQUE: Noncontrast CT of the head obtained from the skullbase to the vertex. CLINICAL INFORMATION: headache with neck stiffness COMPARISON: MRI and CT 2008 DLP: 1046.[address] scans at [facility] use at least one of these dose optimization techniques: automated e xposure control; mA and/or kV adjustment per patient size (includes targeted exams where dose is matc hed to clinical indication); or iterative reconstruction. FINDINGS: No evidence of intracranial hemorrhage or mass effect. Ventricular system and basal cisterns are guerrero nt. No extra-axial fluid collections. No evidence of mass or mass effect. Normal teixeira-white different iation. Paranasal sinuses and mastoid air cells are well aerated. .Normal visualized soft tissues. Chiari I m alformation unchanged since the prior MRI. No hydrocephalus. IMPRESSION: No evidence of intracranial hemorrhage or mass effect. No acute intracranial findings.
[2022-12-12] MEDS: doxycycline 100 mg Tablet PO (10:53)
== END 2022-12-12 11:32 | disposition home or self-care (01) ==
PROVIDERS: Emergency Provider Nurse Practitioner Family
DX: R51.9 Headache, unspecified (principal); R50.9 Fever, unspecified; M54.2 Cervicalgia; S40.862A Insect bite (nonvenomous) of left upper arm, initial encounter; W57.XXXA Bitten or stung by nonvenomous insect and other nonvenomous arthropods, initial encounter; F17.210 Nicotine dependence, cigarettes, uncomplicated
CPT/HCPCS: 70210; 70450; 71046; 80053; 81001; 85025; 96361; 96374; 96375; 99285; J1200; J1885; J2765; J7030